=== PATIENT | male | born 1995 | race Caucasian/White ===

== ENCOUNTER 2018-02-05 13:39 | Emergency (ER) | payer OTHER ==
[2018-02-05] MEDS ORDERED: LIDOCAINE 1% (MDV) 20 ML INJ (14:14)
[2018-02-05] MEDS: LIDOCAINE 1% (MPF) 30 ML INJ INJ (14:16)
== END 2018-02-05 15:08 | disposition home or self-care (01) ==
LOC: FTE 13:39
DX: T16.2XXA Foreign body in left ear, initial encounter (principal); T16.1XXA Foreign body in right ear, initial encounter; S01.312A Laceration without foreign body of left ear, initial encounter; S01.311A Laceration without foreign body of right ear, initial encounter; X58.XXXA Exposure to other specified factors, initial encounter; Y92.9 Unspecified place or not applicable
CPT/HCPCS: 69200; 99283-25